=== PATIENT | female | born 1960 | race Hispanic/Latino ===

== ENCOUNTER 2018-12-02 17:35 | Emergency (ER) | payer SELFPAY ==
[2018-12-02 17:38] VITALS: BMI 25.7
[2018-12-02 17:54] VITALS: RESP 18; O2SAT 98
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
[2018-12-02 19:29] VITALS: BP 133/78; PULSE 100; TEMP 98.4
--- NOTE | 2018-12-03 12:54 | RAD ---
Left shoulder three views HISTORY: Fracture. Comparison: None available. Findings: Prominent comminuted and angulated fracture deformity of the proximal left humerus extending through the greater tuberosity and humeral neck to the proximal metaphysis. Marked comminution and angulation at the fracture sites. Additional lateral sided fracture displacement of the greater tuberosity. Correlation with CT scan may be helpful if clinically indicated. Impression: Prominent comminuted and angulated fracture deformity of the proximal left humerus extending through the greater tuberosity and humeral neck to the proximal metaphysis. Marked comminution and angulation at the fracture sites. Additional lateral sided fracture displacement of the greater tuberosity. Correlation with CT scan may be helpful if clinically indicated.
== END 2018-12-02 19:34 | disposition home or self-care (01) ==
LOC: C.ER 17:35
DX: S42.252A Displaced fracture of greater tuberosity of left humerus, initial encounter for closed fracture (principal); Y04.2XXA Assault by strike against or bumped into by another person, initial encounter